=== PATIENT | female | born 1970 | race Caucasian/White ===

== ENCOUNTER 2022-05-24 13:02 | Inpatient (IN) | payer MEDICAID ==
[~2022-05-24] VITALS: Ht 154.9 cm; Wt 73.0 kg
[2022-05-24 13:02] VITALS: BP_SYST 119
--- NOTE | 2022-05-24 13:02 | NUR ---
[facility], CODE STROKE INITIATED IMMEDIATELY, DR HOU AT BEDSIDE, TRIAGED AND TAKEN STRAIGHT TO CT SCAN. REPORT GIVEN TO MALIK
--- NOTE | 2022-05-24 13:35 | NUR ---
TELE NEURO REQUESTED PER DR. HOU
[2022-05-24 13:56] LABS: BASOPHILS % (AUTO) 0.8 % (0.0-2.0); EOSINOPHILS # (AUTO) 0.1 K/uL (0.0-0.4); EOSINOPHILS % (AUTO) 1.9 % (0.0-4.0); HEMATOCRIT 36.2 % (36-48); LYMPHOCYTES # (AUTO) 1.6 K/uL (1.0-5.5); LYMPHOCYTES % (AUTO) 24.6 % (20.5-51.5); MEAN CORPUSCULAR HEMOGLOBIN 27 pg (27-31); MEAN CORPUSCULAR HGB CONC 33 % (32-36); MEAN CORPUSCULAR VOLUME 81 fL (79.0-98.0); MONOCYTES # (AUTO) 0.4 K/uL (0.0-1.0); MONOCYTES % (AUTO) 5.6 % (1.7-9.3); NEUTROPHILS # (AUTO) 4.4 K/uL (1.8-7.7); NEUTROPHILS % (AUTO) 67.1 % (40.0-70.0); PLATELET COUNT (AUTO) 205 K/uL (130-430); RED BLOOD CELL COUNT(AUTO) 4.46 MIL/uL (4.2-6.2); RED CELL DISTRIBUTION WIDTH 14.5 % (9.0-15.0); WHITE BLOOD COUNT (AUTO) 6.6 K/uL (4.8-10.8)
--- NOTE | 2022-05-24 13:57 | NUR ---
TELE NEURO ON BEV WITH DR. HOU AND PT.
--- NOTE | 2022-05-24 14:01 | NUR ---
Pt present to ED via EMS with report of left sided weakness onset btw [id number] today. Pt AOx4 GCS 15 at this time. IV in place. NIH scored at 5. Will continue to monitor pt.
[2022-05-24 14:04] LABS: ANION GAP 8 (5-15); CALCIUM 8.9 mg/dL (8.4-11.0); CHLORIDE 107 mmol/L (98-107); CREATININE 0.79 mg/dL (0.55-1.30); GLUCOSE 84 mg/dL (70-99); POTASSIUM 4.1 mmol/L (3.5-5.1); SODIUM SERUM 141 mmol/L (136-145); UREA NITROGEN, BLOOD 18 mg/dL (8-21)
[2022-05-24 14:08] LABS: INR 0.9 (0.8-1.2); PROTHROMBIN TIME 9.2 SECS (9.5-12.5)
[2022-05-24 14:12] LABS: GFR AFRICAN AMERICAN 98 mL/min (>90)
[2022-05-24 14:13] LABS: ALANINE AMINOTRANSFERASE 34 U/L (12-78); ALBUMIN 3.7 g/dL (3.4-4.8); ASPARTATE AMINOTRANSFERASE 22 U/L (10-37); TOTAL BILIRUBIN 0.2 mg/dL (0.0-1.0)
--- NOTE | 2022-05-24 14:13 | NUR ---
Pt declined Tpa administration stating that she does not like the possible side effects of medication administration. Will continue to monitor pt at this time.
[2022-05-24] MEDS ORDERED: iohexoL 350 mgI/mL, 100 ML INFUS..BTL IV ONE (14:29)
[2022-05-24] MEDS ORDERED: MORPHINE 4 MG INJ. 4 MG/ML VIAL IVP ONE (15:15)
--- NOTE | 2022-05-24 15:32 | NUR ---
NOTIFIED ED ADMITTING REGARDING DR. PALMA'S REQUEST FOR ADMISSION. PER DR. PALMA, PT IS NOT STABLE FOR TRANSFER. WILL CONTACT CORK PAINTER AND GRADER REGARDING THIS MATTER. PER ED MATRIX, PAGE SCHN FOR ADMISSION. PER [facility]: [facility]
--- NOTE | 2022-05-24 15:42 | NUR ---
PER ADMITING, THEY RECEIVED AUTH AND MICROBIOLOGY LAB MANAGER REQUESTED FAX OF [facility] AUTH #: [id number] FAX #: [phone]
[2022-05-24] MEDS ORDERED: NITROGLYCERIN 1 INCH (GM) OINT. TP ONE (15:45)
[2022-05-24] MEDS ORDERED: ASPIRIN 325 MG TABLET PO ONE (15:45)
[2022-05-24] MEDS ORDERED: ASPI-1393 PO (15:48)
--- NOTE | 2022-05-24 19:09 | NUR ---
report recieved from Eric ZAYAS. pt pending admission at this time. Gary Alejandro RN
--- NOTE | 2022-05-24 19:48 | NUR ---
Admit bed requested Patient will be admitted to care of Dr.A. PHAN. Admitted to TELE unit. Diagnosis CHEST PAIN,CVA Inpatient (Yes or No) YES Observation (Yes or No) NO Orientation concerns or request close to nursing station (Yes or No) NO Covid Status PENDING On vent or bipap NO Isolation requirements NO Needs a sitter NO From Home (Yes or if No enter name of facility) YES Requires Dialysis (Yes or No) NO Med Rec Completed (Yes of No) PENDING
--- NOTE | 2022-05-24 20:19 | NUR ---
bedside report given to Nawaf ZAYAS, all questions answered
--- NOTE | 2022-05-24 21:10 | NUR ---
ADMISSION NOTE Received patient from ER via gurney. Patient admitted with diagnosis of CHEST PAIN, CVA. Patient is awake, alert, oriented X 4. Patient oriented to hospital room, call light, toileting, pain management and safety-teach back done. Patient informed that FACUNDO will be HER nurse and that their room number is 117A. Personal belongings checked and Belongings List documented. Call light within reach.
[2022-05-24 21:43] VITALS: BP_SYST 132
--- NOTE | 2022-05-24 22:15 | NUR ---
Paged Dr. Jean Baptiste Wei
--- NOTE | 2022-05-24 22:18 | NUR ---
COMMUNICATION W/ Dariela ROCHA. Inocente ROCHA HAS PAGED BACK AT THIS TIME, PATIENT'S COMPLAINT OF SEVERE CHEST PAIN AND NAUSEA COMMUNICATED TO MD. MD GAVE ORDERS. ALL ORDERS READ BACK, VERIFIED, AND ENTERED FOR PHARMACY APPROVAL. WILL GIVE TO PATIENT ONCE APPROVES. RN MADE AWARE.
[2022-05-24] MEDS ORDERED: ONDANSETRON HCL 4 MG/2 ML VIAL IVP PRN (22:30)
[2022-05-24] MEDS ORDERED: ACETAMINOPHEN 325 MG TABLET PO PRN (22:30)
[2022-05-24] MEDS ORDERED: HYDROcodone/ACETAMIN 5-325 MG TAB (NORCO/ VICODIN) PO PRN (22:30)
[2022-05-24] MEDS: HYDROcodone/ACETAMIN 10-325 MG TAB PO PRN (22:47)
[2022-05-24] MEDS: ONDANSETRON HCL 4 MG/2 ML VIAL IVP PRN (22:47)
[2022-05-25 01:00] VITALS: BP_SYST 98
--- NOTE | 2022-05-25 05:37 | NUR ---
CONSULTATION PAGED/CALLED Reason for Consultation: CHEST PAIN/CVA Person Who was Notified: DR WADE VIA TEXT Consulting Physician: DR WADE Rn Recruitment Specialty: Ordering Physician: SYLVESTER
--- NOTE | 2022-05-25 06:54 | NUR ---
PT DID NOT C/O OF CHEST PAIN AFTER ONE DOSE OF NORCO. AFTER ADMISSION. PT SLEPT THROUGH THE NIGHT. WILL ENDORSE CARE TO DAY RN.
--- NOTE | 2022-05-25 08:00 | NUR ---
OPENING NOTES: PATIENT SITTING ON BED, EATING BREAKFAST. AOX4. BREATHING EVEN AND NON LABORED TO RA. FALL AND SAFETY MEASURES REINFORCED. CALL LIGHT WITHIN REACH.
--- NOTE | 2022-05-25 08:06 | NUR ---
CONSULTATION PAGED/CALLED Reason for Consultation: [] chest pain Person Who was Notified: [] Dr Ivory Jean Baptiste Consulting Physician: [] Dr Ivory Jean Baptiste [facility] Specialist Specialty: [] cardio Ordering Physician: [] Dr Dariela Jean Baptiste
[2022-05-25 08:10] VITALS: BP_SYST 106
[2022-05-25] MEDS ORDERED: ONDANSETRON HCL 4 MG/2 ML VIAL IVP PRN (08:30)
[2022-05-25 08:52] LABS: HEMOGLOBIN 12.5 g/dL (12.0-16.0); RED BLOOD CELL COUNT(AUTO) 4.55 MIL/uL (4.2-6.2); WHITE BLOOD COUNT (AUTO) 4.9 K/uL (4.8-10.8)
[2022-05-25 08:56] LABS: BASOPHILS % (AUTO) 0.5 % (0.0-2.0); EOSINOPHILS # (AUTO) 0.1 K/uL (0.0-0.4); HEMATOCRIT 37.2 % (36-48); LYMPHOCYTES # (AUTO) 1.6 K/uL (1.0-5.5); LYMPHOCYTES % (AUTO) 32.1 % (20.5-51.5); MEAN CORPUSCULAR HEMOGLOBIN 28 pg (27-31); MEAN CORPUSCULAR HGB CONC 34 % (32-36); MEAN CORPUSCULAR VOLUME 82 fL (79.0-98.0); MONOCYTES # (AUTO) 0.3 K/uL (0.0-1.0); MONOCYTES % (AUTO) 5.3 % (1.7-9.3); NEUTROPHILS # (AUTO) 2.9 K/uL (1.8-7.7); NEUTROPHILS % (AUTO) 59.1 % (40.0-70.0); PLATELET COUNT (AUTO) 194 K/uL (130-430); RED CELL DISTRIBUTION WIDTH 14.3 % (9.0-15.0)
[2022-05-25] MEDS: ASPIRIN 81 MG TABLET(ECOTRIN) PO SCH (09:28)
[2022-05-25] MEDS: HYDROcodone/ACETAMIN 10-325 MG TAB PO PRN (09:35)
--- NOTE | 2022-05-25 09:46 | NUR ---
RN NOTES: DR. WADE AT BEDSIDE. PT C/O PAIN ON THE MIDCHEST.NO S/S OF ACUTE DISTRESS NOTED. PRN PAIN MEDICATION GIVEN. FALL AND SAFETY MEASURES PROVIDED.
[2022-05-25 12:00] VITALS: BP_SYST 111
[2022-05-25] MEDS: ONDANSETRON HCL 4 MG/2 ML VIAL IVP PRN (13:45)
[2022-05-25] MEDS: NORMAL SALINE 5 ML DISP.SYRIN IVF SCH ×2 (13:48→22:00)
[2022-05-25] MEDS ORDERED: NORMAL SALINE 5 ML DISP.SYRIN IVF SCH (14:00)
[2022-05-25 14:48] LABS: CALCIUM 8.5 mg/dL (8.4-11.0); CREATININE 0.88 mg/dL (0.55-1.30); POTASSIUM 4.1 mmol/L (3.5-5.1)
[2022-05-25 15:04] LABS: THYROID STIMULATING HORMONE 2.96 uIu/mL (0.36-3.74)
[2022-05-25 16:47] VITALS: BP_SYST 117
--- NOTE | 2022-05-25 19:15 | NUR ---
CLOSING NOTE: PATIENT RESTING IN BED. NO S/S OF ACUTE DISTRESS NOTED. CALL LIGHT WITHIN REACH. NEEDS MET THROUGHOUT SHIFT. ENDORSED TO SPECIAL INSPECTOR RN.
--- NOTE | 2022-05-25 19:20 | NUR ---
OPENING NOTE PT IS LYING IN BED WITH EYES CLOSED. NO APPARENT SIGNS OF DISTRESS NOTED AT THIS TIME. BED IS IN LOWEST POSITION WITH FALL AND SAFETY PRECAUTIONS IN PLACE. CALL LIGHT IS WITHIN REACH, PT EDUCATED ON HOW TO USE IT. PT DENIES ANY PAIN. PT STATES SHE FEELS SLEEPY
[2022-05-25 20:00] VITALS: BP_SYST 109
[2022-05-26] VITALS: BP_SYST 112
[2022-05-26 07:35] LABS: BASOPHILS % (AUTO) 0.9 % (0.0-2.0); EOSINOPHILS # (AUTO) 0.1 K/uL (0.0-0.4); EOSINOPHILS % (AUTO) 1.8 % (0.0-4.0); HEMATOCRIT 36.1 % (36-48); HEMOGLOBIN 12.4 g/dL (12.0-16.0); LYMPHOCYTES # (AUTO) 1.5 K/uL (1.0-5.5); LYMPHOCYTES % (AUTO) 29.6 % (20.5-51.5); MEAN CORPUSCULAR HEMOGLOBIN 28 pg (27-31); MEAN CORPUSCULAR HGB CONC 35 % (32-36); MEAN CORPUSCULAR VOLUME 81 fL (79.0-98.0); MONOCYTES # (AUTO) 0.2 K/uL (0.0-1.0); MONOCYTES % (AUTO) 4.7 % (1.7-9.3); NEUTROPHILS # (AUTO) 3.2 K/uL (1.8-7.7); PLATELET COUNT (AUTO) 195 K/uL (130-430); RED BLOOD CELL COUNT(AUTO) 4.46 MIL/uL (4.2-6.2); RED CELL DISTRIBUTION WIDTH 14.3 % (9.0-15.0); WHITE BLOOD COUNT (AUTO) 5.1 K/uL (4.8-10.8)
[2022-05-26] MEDS ORDERED: LORazepam 2 MG/ML VIAL IVP ONE (07:45)
[2022-05-26 08:00] VITALS: BP_SYST 110
--- NOTE | 2022-05-26 08:08 | NUR ---
CONSULTATION PAGED REASON FOR CONSULTATION CA COLON WAS CONSULT CALED?Y PERSON WHO WAS NOTIFIED:OTTONIEL CONSULTING PHYSICIAN:TRISHA FOWLER (MIA GIORDANO ACCOUNTANT) BUSINESS SYSTEM CONSULTANT SPECIALTY:GI BUSINESS SYSTEM CONSULTANT PHONE NUMBER:[phone] REQUESTING PHYSICIAN:NEERAJ LOBATO
[2022-05-26] MEDS: NORMAL SALINE 5 ML DISP.SYRIN IVF SCH ×2 (08:31→13:59)
[2022-05-26 08:37] LABS: CALCIUM 8.6 mg/dL (8.4-11.0); CREATININE 0.81 mg/dL (0.55-1.30); POTASSIUM 4.3 mmol/L (3.5-5.1)
[2022-05-26 08:46] LABS: ALBUMIN 3.3 g/dL (3.4-4.8); PHOSPHORUS 3.5 mg/dL (2.7-4.5); TOTAL BILIRUBIN 0.4 mg/dL (0.0-1.0)
--- NOTE | 2022-05-26 09:01 | NUR ---
CONSULTATION PAGED/CALLED Reason for Consultation: []ca colon Person Who was Notified: []left message Consulting Physician: [] Dr. Hemphill Firesetter Specialty: []GI Ordering Physician: []Dariela Melendez
[2022-05-26] MEDS: ASPIRIN 81 MG TABLET(ECOTRIN) PO SCH (09:51)
[2022-05-26] MEDS: HYDROcodone/ACETAMIN 10-325 MG TAB PO PRN (13:03)
--- NOTE | 2022-05-26 14:46 | NUR ---
CLOSING NOTE PT IS SEMIFOWLERS IN BED WITH EYES CLOSED. NO APPARENT DISTRESS NOTED AT THIS TIME. BED IS IN LOWEST POSITION WITH FALL AND SAFETY PRECAUTIONS IN PLACE. CALL LIGHT WITHIN REACH. ALL NEEDS MET AT THIS TIME.
[2022-05-26] MEDS ORDERED: SUCRALFATE 1 GM TABLET PO ONE (15:45)
[2022-05-26 16:00] VITALS: BP_SYST 116
[2022-05-26] MEDS: ONDANSETRON HCL 4 MG/2 ML VIAL IVP PRN (17:25)
[2022-05-26] MEDS: SUCRALFATE 1 GM TABLET PO SCH (17:26)
[2022-05-26 20:20] VITALS: BP_SYST 129
[2022-05-27 02:12] VITALS: BP_SYST 109
--- NOTE | 2022-05-27 03:37 | NUR ---
Received pt from [facility] around 22pm, pt awake and oriented x 4. Denied any chest pain and weakness. V/s stable afebrile. Tele-NSR w/o ectopy. No s/sx of weakness.
[2022-05-27] MEDS: NORMAL SALINE 5 ML DISP.SYRIN IVF SCH (07:07)
[2022-05-27] MEDS: SUCRALFATE 1 GM TABLET PO SCH (07:10)
[2022-05-27 08:00] VITALS: BP_SYST 114
--- NOTE | 2022-05-27 08:00 | NUR ---
initial notes Awake, oriented. ambulate to the bathroom. denies any pain or discomfort. has some mild weakness on the left arm. Call light within reach. Enc to call for help as needed. Verbalize understanding
[2022-05-27] MEDS: ASPIRIN 81 MG TABLET(ECOTRIN) PO SCH (08:46)
--- NOTE | 2022-05-27 11:00 | NUR ---
Notes patient wants to go home. Informed patient to wait for primary doctor for discharge order.
[2022-05-27 12:24] VITALS: BP_SYST 121
[2022-05-27] MEDS ORDERED: Aspirin Ec PO (12:48)
[2022-05-27 13:20] VITALS: BP_SYST 121
--- NOTE | 2022-05-27 14:11 | NUR ---
Discharge instruction given, instructed for follow up appointment and medications, instructed to continue aspirin as ordered. Patient refusing to do the xray of the spine since she is ready to go home. IVL removed and arm band removed. Addendum: 05/27/22 at 1428 by Rebecca Argueta RN [id number]- discharge home, accompanied by family, denies any pain or discomfort. No distress, ambulate with steady gait.
== END 2022-05-27 14:25 | disposition home or self-care (01) | DRG 47 ==
LOC: SED 13:02 → STU 15:46
PROVIDERS: ADMIT Specialist; ATTEND Specialist
DX: G45.9 Transient cerebral ischemic attack, unspecified (principal); C18.9 Malignant neoplasm of colon, unspecified; M54.10 Radiculopathy, site unspecified; M94.0 Chondrocostal junction syndrome [Tietze]; E78.5 Hyperlipidemia, unspecified; Z20.822 Contact with and (suspected) exposure to COVID-19; Z85.038 Personal history of other malignant neoplasm of large intestine; Z88.8 Allergy status to other drugs, medicaments and biological substances; Z79.899 Other long term (current) drug therapy
CPT/HCPCS: 36415; 70450-TC; 70496; 70498; 70551; 71045; 76376; 80048; 80053; 80061; 82550; 83605; 83735; 83880; 84100; 84443; 84484; 85025; 85610-TC; 85730-TC; 93005; 93306; 96374; 99285; G0378; J2060; J2270; J2405; Q9967